=== PATIENT | female | born 1980 | race Caucasian/White ===

== ENCOUNTER → 2020-10-11 09:25 | Outpatient (CLI) | payer BC, SELFPAY | PROVIDERS: PCP Internal Medicine Adolescent Medicine; Visit Provider Internal Medicine Adolescent Medicine | DX: Z20.822 Contact with and (suspected) exposure to COVID-19 (principal); U07.1 COVID-19 | CPT/HCPCS: U0003 ==

== ENCOUNTER → 2021-04-16 11:48 | Outpatient (CLI) | payer BC, SELFPAY ==
--- NOTE | 2021-04-16 11:53 | XR_ITS ---
PROCEDURE: XR THORACIC SPINE 3V CLINICAL INDICATION: THORACIC SPINE PAIN COMPARISON: No exams were available for comparison FINDINGS: No fracture or dislocation. No lytic or blastic change. There is normal mineralization. There is minimal midthoracic scoliosis convex right measuring 9 degrees. No fracture or dislocation. No lytic or blastic change. No significant degenerative change. Other findings:None. IMPRESSION: Minimal midthoracic scoliosis otherwise negative Dictated by: Kevin Salgado MD 04/16/2021 12:43 Kevin Salgado MD in [facility] 04/16/2021 12:43
== END ==
PROVIDERS: PCP Internal Medicine Adolescent Medicine; Visit Provider Internal Medicine Adolescent Medicine
DX: M54.6 Pain in thoracic spine (principal)
CPT/HCPCS: 72072

== ENCOUNTER → 2022-02-17 18:14 | Outpatient (CLI) | payer BC, SELFPAY | PROVIDERS: PCP Internal Medicine Adolescent Medicine; Visit Provider Internal Medicine Adolescent Medicine | DX: G47.30 Sleep apnea, unspecified (principal); R40.0 Somnolence; R06.83 Snoring | CPT/HCPCS: 95806 ==